=== PATIENT | male | born 1950 | race Caucasian/White ===

== ENCOUNTER → 2017-02-11 | Outpatient (CLI) | payer OTHER, MEDICARE ==
[~2017-02-11] MED LIST: ATOR-54 PO; DOCU-94 PO; IBUP-1050 PO; LOSA1TAB38 PO; POLY335019 PO; PSYL55.43 PO
[2017-02-11 13:32] LABS: BASO % 0.4 %; BASO ABS # 0.02 K/uL (0-0.2); COMPLETE YES; EOS % 1.6 %; HEMATOCRIT 42.4 % (42-52); IG% 0.2 %; LYMPH % 34.5 %; LYMPH ABS # 1.93 K/uL (1.2-3.4); MEAN CELL VOLUME 94.6 fL (80-100); MEAN CORPUSCULAR HEMOGLOBIN 32.8 pg (25-34); MEAN CORPUSCULAR HGB CONC 34.7 g/dl (32-36); MONO % 11.4 %; NEUT % 51.9 %; PLATELET COUNT 168 K/uL (130-400); RED BLOOD COUNT 4.48 M/uL (4.7-6.1); WHITE BLOOD COUNT 5.59 K/uL (4.8-10.8)
[2017-02-11 13:53] LABS: ESTIMATED AVERAGE GLUCOSE 140 mg/dl; HA1C FLAG Normal (Normal)
[2017-02-11 14:05] LABS: ALT/SGPT 46 U/L (12-78); BLOOD UREA NITROGEN 15 mg/dl (7-18); BUN/CREATININE RATIO 15.5 (10-20); CALCIUM 8.9 mg/dl (8.5-10.1); CARBON DIOXIDE 25 mmol/L (21-32); CHLORIDE 106 mmol/L (98-107); CHOLESTEROL 177 mg/dl (0-200); CREATININE 0.98 mg/dl (0.60-1.40); GLUCOSE 104 mg/dl (70-99); POTASSIUM 4.6 mmol/L (3.5-5.1); SODIUM 138 mmol/L (136-145)
[2017-02-11 14:16] LABS: ALB/GLOB RATIO 1.1 (0.9-2); ALKALINE PHOSPHATASE 114 U/L (45-117); AST/SGOT 29 U/L (15-37); CHOLESTEROL/HDL RATIO 5.4; HDL CHOLESTEROL 33 mg/dl; LDL CHOLESTEROL CALCULATED 100 mg/dl; PROSTATE SPECIFIC ANTIGEN 0.642 ng/ml (0.000-4.000); TRIGLYCERIDES 222 mg/dl (0-150); VERY LOW DENSITY LIPOPROT CALC 44 mg/dl
== END | disposition home or self-care (01) ==
LOC: C.LAB 11:34
PROVIDERS: ATTEND Internal Medicine Geriatric Medicine
DX: R73.9 Hyperglycemia, unspecified (principal); I10 Essential (primary) hypertension; E78.5 Hyperlipidemia, unspecified

== ENCOUNTER → 2017-05-19 | Outpatient (CLI) | payer OTHER, MEDICARE ==
--- NOTE | 2017-05-19 14:47 | DIAGNOSTIC IMAGING REPORT ---
R FOOT MIN 3 VIEWS ROUTINE HISTORY: 67 years-old Male TINEA CRJAMAICAS chronic right foot pain status post walking injury, most pronounced in the region of the fifth metacarpal. COMPARISON: None available TECHNIQUE: 3 views of the right foot FINDINGS: Mild first MTP joint osteoarthritis is noted in addition to mild degenerative changes of the interphalangeal joints. Mild cortical thickening of the fourth proximal phalanx suggests remote healed fracture. There is no acute fracture or dislocation identified. Moderate plantar calcaneal enthesophyte. Dystrophic calcifications are seen within the region of the distal Achilles tendon. Mild tibiotalar osteoarthritis. IMPRESSION: 1. No acute fracture or dislocation. 2. Degenerative changes about the foot as above with suggested remote fracture deformity of the fourth proximal phalanx. The above report was generated using voice recognition software. It may contain grammatical, syntax or spelling errors. Electronically signed by: Jimbo Arana M.D. 05/19/2017 2:45 PM Dictated Date/Time: 05/19/2017 2:43 PM
== END | disposition home or self-care (01) ==
LOC: C.RADBC 14:17
PROVIDERS: ATTEND Internal Medicine Geriatric Medicine
DX: B35.6 Tinea cruris (principal)

== ENCOUNTER → 2017-05-22 | Outpatient (CLI) | payer OTHER, MEDICARE ==
[2017-05-22 12:49] LABS: ESTIMATED AVERAGE GLUCOSE 131 mg/dl; HA1C FLAG Normal (Normal)
== END | disposition home or self-care (01) ==
LOC: C.LAB 11:32
PROVIDERS: ATTEND Internal Medicine Geriatric Medicine
DX: E11.9 Type 2 diabetes mellitus without complications (principal)

== ENCOUNTER → 2017-11-25 | Outpatient (CLI) | payer OTHER, MEDICARE ==
[2017-11-25 13:57] LABS: HEMOGLOBIN A1C 6.2 % (4.5-5.6)
[2017-11-25 14:01] LABS: BLOOD UREA NITROGEN 19 mg/dl (7-18); CALCIUM 8.5 mg/dl (8.5-10.1); CARBON DIOXIDE 27 mmol/L (21-32); CREATININE 1.09 mg/dl (0.60-1.40); GLUCOSE 122 mg/dl (70-99); SODIUM 139 mmol/L (136-145)
[2017-11-25 14:04] LABS: CHOLESTEROL 177 mg/dl (0-200); LDL CHOLESTEROL CALCULATED 84 mg/dl
== END | disposition home or self-care (01) ==
LOC: C.LAB 12:10
PROVIDERS: ATTEND Internal Medicine Geriatric Medicine
DX: I10 Essential (primary) hypertension (principal); E78.5 Hyperlipidemia, unspecified; E11.9 Type 2 diabetes mellitus without complications